=== PATIENT | female | born 1980 | race African-American/Black ===

== ENCOUNTER 2019-02-17 11:37 | Emergency (ER) | payer BC, MEDICAID ==
[~2019-02-17] VITALS: Ht 172.7 cm; Wt 105.0 kg
[2019-02-17 13:56] LABS: BASOPHILS % 1.1 % (0.0-2.0); EOSINOPHILS % 1.5 % (0.0-5.0); HEMATOCRIT. 34.2 % (36.0-48.0); HEMOGLOBIN. 11.4 g/dL (12.0-16.0); LYMPHOCYTES % 38.9 % (20.0-50.0); MEAN CORPUSCULAR HEMOGLOBIN 28.4 pg (28.0-32.0); MEAN CORPUSCULAR VOLUME 85.4 fL (81.0-99.0); MEAN PLATELET VOLUME 8.6 fl (7.4-10.4); MONOCYTES % 9.4 % (2.0-8.0); NEUTROPHILS % 49.1 % (40.0-76.0); PLATELET 200 x1000/uL (130-400); RED BLOOD CELL COUNT 4.01 mill/uL (4.2-5.4); RED CELL DISTRIBUTION WIDTH 13.3 % (11.6-14.6)
[2019-02-17 13:57] LABS: CHLORIDE 105 mEq/L (98-107)
[2019-02-17 15:27] VITALS: BP 155/89
== END 2019-02-17 15:27 | disposition home or self-care (01) ==
LOC: ER 11:37
DX: R55 Syncope and collapse (principal)
CPT/HCPCS: 36415; 81025; 93005; 99284